=== PATIENT | female | born 1935 | race Caucasian/White ===

== ENCOUNTER 2021-06-22 13:36 | Inpatient (IN) ==
[2021-06-22 16:23] LABS: Basophils % 0.4 % (0.0-0.8); Eosinophils # 0.1 10*3/uL (0.0-0.87); Eosinophils % 1.1 % (0.00-10.9); Hematocrit 33.7 VOL% (35.7-47.0); Hemoglobin 10.8 GM/DL (12.0-16.0); Immature Granulocytes % 0.4 %; Immature Granulocytes Absolute 0.03 #; Lymphocytes # 0.7 10*3/uL (1.4-4.0); Lymphocytes % 9.2 % (21.3-54.2); Mean Corpuscular Volume 94.7 FL (87-102); Mean Platelet Volume 10.5 FL (9.6-12.0); Monocytes % 7.6 % (1.7-12.7); Neutrophils % 81.3 % (38.7-73.9); Platelet Count 278 T/CUMM (130-400); Red Blood Count 3.56 MC/CUMM (3.8-5.5); Red Cell Distribution Width 13.3 % (9.3-17.3); White Blood Count 7.2 T/CUMM (4-12)
[2021-06-22 16:34] LABS: PT Patient Result 11.4 SECS (10.5-12.0)
[2021-06-22 17:02] LABS: Albumin 2.5 G/DL (3.4-5.0); CKMB % 0.8 %; Calcium 8.5 MG/DL (8.5-10.1); High Sensitive Troponin I* 39.4 ng/L (0-54); Potassium 3.6 MMOL/L (3.5-5.1); Total Protein 6.7 G/DL (6.4-8.2)
[2021-06-22 18:49] LABS: Bilirubin,Urine Negative (Negative); Blood, Urine Small mg/dL (Negative); Glucose,Urine (UA) 50 mg/dL (Negative); Hyaline Casts,Urine 1 /LPF (0-3); Ketones,Urine 20 mg/dL (Negative); Mucus,Urine Occasional /LPF (Occasional); Nitrite,Urine Negative (Negative); Protein,Urine 100 MG/DL; RBC,Urine 2 /HPF (0-4); Squamous Epithelial Cell,Urine Occasional /HPF (0-10); Urine Appearance CLEAR (Clear); Urine Color Yellow (Yellow); Urine Specific Gravity 1.025 (1.001-1.035); Urine Urobilinogen < 2.0 EU/DL (<2.0)
[2021-06-22] MEDS ORDERED: CALCIUM CARBONATE CHEW 500 MG TABLET PO PRN (19:27)
[2021-06-22] MEDS ORDERED: ACETAMINOPHEN 325 MG TABLET PO PRN (19:27)
[2021-06-22] MEDS ORDERED: ONDANSETRON 4 MG/2 ML VIAL IV PRN (19:27)
[2021-06-23 04:15] LABS: Basophils % 0.4 % (0.0-0.8); Eosinophils # 0.1 10*3/uL (0.0-0.87); Hemoglobin 10.4 GM/DL (12.0-16.0); Immature Granulocytes % 0.4 %; Immature Granulocytes Absolute 0.03 #; Lymphocytes # 0.6 10*3/uL (1.4-4.0); Lymphocytes % 8.7 % (21.3-54.2); Mean Corpuscular HGB Conc 31.5 GM/DL (32-36); Mean Corpuscular Volume 95.7 FL (87-102); Mean Platelet Volume 10.7 FL (9.6-12.0); Monocytes % 8.2 % (1.7-12.7); Neutrophils % 81.3 % (38.7-73.9); Platelet Count 265 T/CUMM (130-400); Red Blood Count 3.45 MC/CUMM (3.8-5.5); Red Cell Distribution Width 13.5 % (9.3-17.3)
[2021-06-23 04:23] LABS: Calcium 8.3 MG/DL (8.5-10.1); Osmolality,Calculated 285.8 MOS/KG (273-304); Potassium 3.8 MMOL/L (3.5-5.1)
[2021-06-23] MEDS ORDERED: hydrALAZINE 20 MG/1 ML VIAL IV PRN (09:08)
[2021-06-23] MEDS ORDERED: NYSTATIN 500,000 UNIT/5 ML UDCUP SWISH/SWAL STA (09:54)
[2021-06-23] MEDS ORDERED: INFLUENZA VIRUS VACCINE 0.5 ML SYRINGE IM ONE (11:23)
[2021-06-23] MEDS: NYSTATIN POWDER 15 GM BOTTLE TOP SCH ×2 (12:41→22:50)
[2021-06-23] MEDS ORDERED: LORazepam 2 MG/1 ML VIAL IV PRN (15:03)
[2021-06-23] MEDS: SODIUM CHLORIDE 0.9% 1,000 ML IV SCH (15:36)
[2021-06-23] MEDS: METOPROLOL TARTRATE 25 MG TABLET PO SCH (22:47)
[2021-06-24] MEDS: SODIUM CHLORIDE 0.9% 1,000 ML IV SCH (00:29)
[2021-06-24 06:54] LABS: Basophils % 0.6 % (0.0-0.8); Eosinophils # 0.2 10*3/uL (0.0-0.87); Eosinophils % 2.2 % (0.00-10.9); Hematocrit 33.5 VOL% (35.7-47.0); Hemoglobin 10.1 GM/DL (12.0-16.0); Immature Granulocytes % 0.6 %; Immature Granulocytes Absolute 0.04 #; Lymphocytes # 0.5 10*3/uL (1.4-4.0); Lymphocytes % 7.7 % (21.3-54.2); Mean Corpuscular HGB Conc 30.1 GM/DL (32-36); Mean Corpuscular Volume 98.8 FL (87-102); Mean Platelet Volume 10.7 FL (9.6-12.0); Monocytes % 8.9 % (1.7-12.7); Platelet Count 264 T/CUMM (130-400); Red Blood Count 3.39 MC/CUMM (3.8-5.5); Red Cell Distribution Width 13.5 % (9.3-17.3); White Blood Count 6.8 T/CUMM (4-12)
[2021-06-24 07:28] LABS: Potassium 3.4 MMOL/L (3.5-5.1)
[2021-06-24] MEDS ORDERED: POTASSIUM CHLORIDE 20 MEQ TABLET PO ONE (09:05)
[2021-06-24] MEDS: NYSTATIN POWDER 15 GM BOTTLE TOP SCH ×2 (09:12→21:26)
[2021-06-24] MEDS: PANTOPRAZOLE 40 MG TABLET PO SCH (09:15)
[2021-06-24] MEDS: METOPROLOL TARTRATE 25 MG TABLET PO SCH ×2 (09:15→22:53)
[2021-06-24] MEDS ORDERED: MAGNESIUM SULF RIDER 2 GM/50 ML PREMIX IV ONE (09:30)
[2021-06-24 09:42] LABS: % Iron Saturation 12.6 % (18-50)
[2021-06-24] MEDS: DEXTROSE 5% 1,000 ML IV SCH (09:52)
[2021-06-24 17:26] LABS: Folate 17.04 NG/ML (5.38-24.0)
[2021-06-25] MEDS: DEXTROSE 5% 1,000 ML IV SCH ×2 (00:24→16:35)
[2021-06-25 03:47] LABS: Basophils % 0.6 % (0.0-0.8); Eosinophils # 0.4 10*3/uL (0.0-0.87); Eosinophils % 6.4 % (0.00-10.9); Hematocrit 34.7 VOL% (35.7-47.0); Hemoglobin 10.6 GM/DL (12.0-16.0); Immature Granulocytes % 0.3 %; Immature Granulocytes Absolute 0.02 #; Lymphocytes # 0.8 10*3/uL (1.4-4.0); Lymphocytes % 12.3 % (21.3-54.2); Mean Corpuscular HGB Conc 30.5 GM/DL (32-36); Mean Corpuscular Volume 96.7 FL (87-102); Mean Platelet Volume 10.6 FL (9.6-12.0); Monocytes % 8.4 % (1.7-12.7); Platelet Count 272 T/CUMM (130-400); Red Blood Count 3.59 MC/CUMM (3.8-5.5); Red Cell Distribution Width 13.5 % (9.3-17.3); White Blood Count 6.7 T/CUMM (4-12)
[2021-06-25 04:03] LABS: Calcium 7.9 MG/DL (8.5-10.1); Osmolality,Calculated 289.6 MOS/KG (273-304)
[2021-06-25] MEDS: ASPIRIN EC 81 MG TABLET PO SCH (09:09)
[2021-06-25] MEDS: NYSTATIN POWDER 15 GM BOTTLE TOP SCH ×2 (09:10→21:09)
[2021-06-25] MEDS: PANTOPRAZOLE 40 MG TABLET PO SCH (09:10)
[2021-06-25] MEDS: METOPROLOL TARTRATE 25 MG TABLET PO SCH ×2 (09:10→21:08)
[2021-06-25] MEDS: POTASSIUM CHLORIDE 20 MEQ TABLET PO SCH ×2 (09:10→13:07)
[2021-06-25] MEDS: FERROUS SULFATE 325 MG TABLET PO SCH (09:10)
[2021-06-25] MEDS ORDERED: METOPROLOL TARTRATE 25 MG TABLET PO ONE (12:00)
[2021-06-25] MEDS: FLUCONAZOLE 150 MG TABLET PO SCH (16:37)
[2021-06-25] MEDS: QUEtiapine 25 MG TABLET PO SCH (18:17)
[2021-06-26] MEDS: DEXTROSE 5% 1,000 ML IV SCH (03:14)
[2021-06-26 05:11] LABS: Basophils % 0.3 % (0.0-0.8); Eosinophils # 0.6 10*3/uL (0.0-0.87); Eosinophils % 9.4 % (0.00-10.9); Hematocrit 32.2 VOL% (35.7-47.0); Hemoglobin 10.1 GM/DL (12.0-16.0); Immature Granulocytes % 0.5 %; Immature Granulocytes Absolute 0.03 #; Lymphocytes % 15.9 % (21.3-54.2); Mean Corpuscular HGB Conc 31.4 GM/DL (32-36); Monocytes % 10.5 % (1.7-12.7); Neutrophils % 63.4 % (38.7-73.9); Platelet Count 246 T/CUMM (130-400); Red Blood Count 3.39 MC/CUMM (3.8-5.5); Red Cell Distribution Width 13.6 % (9.3-17.3)
[2021-06-26 05:35] LABS: Calcium 7.9 MG/DL (8.5-10.1); Osmolality,Calculated 280.4 MOS/KG (273-304); Potassium 3.1 MMOL/L (3.5-5.1)
[2021-06-26] MEDS: POTASSIUM CHLORIDE 20 MEQ TABLET PO SCH ×2 (08:00→11:07)
[2021-06-26] MEDS: ASPIRIN EC 81 MG TABLET PO SCH ×2 (08:43→11:08)
[2021-06-26] MEDS: FERROUS SULFATE 325 MG TABLET PO SCH (08:45)
[2021-06-26] MEDS ORDERED: FUROSEMIDE 20 MG/2 ML VIAL IV ONE (08:46)
[2021-06-26] MEDS: METOPROLOL TARTRATE 25 MG TABLET PO SCH ×2 (08:48→20:23)
[2021-06-26] MEDS: PANTOPRAZOLE 40 MG TABLET PO SCH (08:50)
[2021-06-26] MEDS: NYSTATIN POWDER 15 GM BOTTLE TOP SCH ×2 (11:08→20:23)
[2021-06-26] MEDS: AMOXICILLIN/CLAV 875 MG TABLET PO SCH (15:12)
[2021-06-26] MEDS ORDERED: TUBERCULIN SKIN TEST 0.1 ML SYRINGE INTRADERM ONE (16:57)
[2021-06-26] MEDS: QUEtiapine 25 MG TABLET PO SCH (18:08)
[2021-06-27] MEDS: AMOXICILLIN/CLAV 875 MG TABLET PO SCH ×2 (01:55→13:53)
[2021-06-27 05:33] LABS: Basophils % 0.3 % (0.0-0.8); Eosinophils # 0.7 10*3/uL (0.0-0.87); Eosinophils % 10.9 % (0.00-10.9); Hemoglobin 10.3 GM/DL (12.0-16.0); Immature Granulocytes % 0.6 %; Immature Granulocytes Absolute 0.04 #; Lymphocytes % 15.4 % (21.3-54.2); Mean Corpuscular HGB Conc 30.3 GM/DL (32-36); Mean Platelet Volume 11.1 FL (9.6-12.0); Neutrophils % 63.8 % (38.7-73.9); Platelet Count 255 T/CUMM (130-400); Red Blood Count 3.54 MC/CUMM (3.8-5.5); Red Cell Distribution Width 13.7 % (9.3-17.3); White Blood Count 6.3 T/CUMM (4-12)
[2021-06-27 05:42] LABS: Potassium 3.5 MMOL/L (3.5-5.1)
[2021-06-27] MEDS: METOPROLOL TARTRATE 25 MG TABLET PO SCH ×2 (08:26→20:25)
[2021-06-27] MEDS: ASPIRIN EC 81 MG TABLET PO SCH (08:26)
[2021-06-27] MEDS: PANTOPRAZOLE 40 MG TABLET PO SCH (08:26)
[2021-06-27] MEDS: NYSTATIN POWDER 15 GM BOTTLE TOP SCH ×2 (08:27→20:25)
[2021-06-27] MEDS: FERROUS SULFATE 325 MG TABLET PO SCH (08:27)
[2021-06-27] MEDS: QUEtiapine 25 MG TABLET PO SCH (17:47)
[2021-06-28] MEDS: AMOXICILLIN/CLAV 875 MG TABLET PO SCH ×2 (01:14→14:02)
[2021-06-28 05:31] LABS: Basophils % 0.7 % (0.0-0.8); Eosinophils # 0.7 10*3/uL (0.0-0.87); Eosinophils % 11.4 % (0.00-10.9); Hemoglobin 10.2 GM/DL (12.0-16.0); Immature Granulocytes % 0.7 %; Immature Granulocytes Absolute 0.04 #; Lymphocytes # 0.8 10*3/uL (1.4-4.0); Lymphocytes % 13.3 % (21.3-54.2); Mean Corpuscular HGB Conc 30.9 GM/DL (32-36); Mean Corpuscular Volume 95.7 FL (87-102); Mean Platelet Volume 10.7 FL (9.6-12.0); Monocytes % 10.4 % (1.7-12.7); Neutrophils % 63.5 % (38.7-73.9); Platelet Count 251 T/CUMM (130-400); Red Blood Count 3.45 MC/CUMM (3.8-5.5); Red Cell Distribution Width 13.9 % (9.3-17.3)
[2021-06-28 05:49] LABS: Calcium 7.9 MG/DL (8.5-10.1); Osmolality,Calculated 288.7 MOS/KG (273-304); Potassium 3.8 MMOL/L (3.5-5.1)
[2021-06-28 06:36] LABS: Eosinophils 11 % (0-10); Lymphocytes 8 % (20-55); Platelet Estimate Adequate; Segmented Neutrophils 75 % (50-85); Total Cells Counted 100
[2021-06-28] MEDS: ASPIRIN EC 81 MG TABLET PO SCH (08:15)
[2021-06-28] MEDS: FERROUS SULFATE 325 MG TABLET PO SCH (08:15)
[2021-06-28] MEDS: PANTOPRAZOLE 40 MG TABLET PO SCH (08:15)
[2021-06-28] MEDS: METOPROLOL TARTRATE 25 MG TABLET PO SCH ×2 (08:15→21:57)
[2021-06-28] MEDS: NYSTATIN POWDER 15 GM BOTTLE TOP SCH ×2 (08:16→21:57)
[2021-06-28] MEDS ORDERED: CYANOCOBALAMIN 500 MCG TABLET PO SCH (09:00)
[2021-06-28] MEDS: CYANOCOBALAMIN 1000 MCG/1 ML VIAL IM SCH (10:29)
[2021-06-28] MEDS: CHOLECALCIFEROL 1,000 UNIT TABLET PO SCH (10:29)
[2021-06-28] MEDS: FLUCONAZOLE 150 MG TABLET PO SCH (14:03)
[2021-06-28] MEDS: QUEtiapine 25 MG TABLET PO SCH (18:26)
[2021-06-29] MEDS: AMOXICILLIN/CLAV 875 MG TABLET PO SCH ×2 (00:51→14:07)
[2021-06-29] MEDS: METOPROLOL TARTRATE 25 MG TABLET PO SCH ×2 (08:40→20:55)
[2021-06-29] MEDS: PANTOPRAZOLE 40 MG TABLET PO SCH (08:40)
[2021-06-29] MEDS: CHOLECALCIFEROL 1,000 UNIT TABLET PO SCH (08:40)
[2021-06-29] MEDS: FERROUS SULFATE 325 MG TABLET PO SCH (08:40)
[2021-06-29] MEDS: ASPIRIN EC 81 MG TABLET PO SCH (08:40)
[2021-06-29] MEDS: NYSTATIN POWDER 15 GM BOTTLE TOP SCH ×2 (08:41→20:55)
[2021-06-29] MEDS ORDERED: MORPHINE 2 MG/1 ML SYRINGE IV PRN (15:48)
[2021-06-29] MEDS ORDERED: POLYETHYLENE GLYCOL POWDER 255 GM BOTTLE PO ONE (15:48)
[2021-06-29] MEDS ORDERED: LORazepam 2 MG/1 ML VIAL IV PRN (15:48)
[2021-06-29] MEDS ORDERED: POLYETHYLENE GLYCOL POWDER 17 GM PACK PO ONE (15:54)
[2021-06-29] MEDS: QUEtiapine 25 MG TABLET PO SCH (17:20)
[2021-06-29] MEDS: DOCUSATE SODIUM 100 MG CAPSULE PO SCH (20:55)
[2021-06-30] MEDS: AMOXICILLIN/CLAV 875 MG TABLET PO SCH ×2 (00:05→12:00)
[2021-06-30] MEDS: DOCUSATE SODIUM 100 MG CAPSULE PO SCH ×2 (08:45→22:06)
[2021-06-30] MEDS: ASPIRIN EC 81 MG TABLET PO SCH (08:45)
[2021-06-30] MEDS: PANTOPRAZOLE 40 MG TABLET PO SCH (08:45)
[2021-06-30] MEDS: FERROUS SULFATE 325 MG TABLET PO SCH (08:45)
[2021-06-30] MEDS: METOPROLOL TARTRATE 25 MG TABLET PO SCH ×2 (08:45→22:06)
[2021-06-30] MEDS: CHOLECALCIFEROL 1,000 UNIT TABLET PO SCH (08:45)
[2021-06-30] MEDS: NYSTATIN POWDER 15 GM BOTTLE TOP SCH ×2 (08:45→22:07)
[2021-06-30] MEDS ORDERED: POLYETHYLENE GLYCOL POWDER 17 GM PACK PO SCH (09:00)
[2021-06-30] MEDS: QUEtiapine 25 MG TABLET PO SCH (17:15)
[2021-06-30] MEDS: MORPHINE ER 15 MG TABLET PO SCH (22:06)
[2021-07-01] MEDS: AMOXICILLIN/CLAV 875 MG TABLET PO SCH ×2 (00:10→13:04)
[2021-07-01] MEDS: ASPIRIN EC 81 MG TABLET PO SCH (09:57)
[2021-07-01] MEDS: CHOLECALCIFEROL 1,000 UNIT TABLET PO SCH (09:57)
[2021-07-01] MEDS: FERROUS SULFATE 325 MG TABLET PO SCH (09:57)
[2021-07-01] MEDS: DOCUSATE SODIUM 100 MG CAPSULE PO SCH ×2 (09:58→21:03)
[2021-07-01] MEDS: PANTOPRAZOLE 40 MG TABLET PO SCH (09:58)
[2021-07-01] MEDS: METOPROLOL TARTRATE 25 MG TABLET PO SCH ×2 (09:58→21:03)
[2021-07-01] MEDS: NYSTATIN POWDER 15 GM BOTTLE TOP SCH ×2 (09:59→21:04)
[2021-07-01] MEDS: QUEtiapine 25 MG TABLET PO SCH (17:46)
[2021-07-01] MEDS: MORPHINE ER 15 MG TABLET PO SCH (21:03)
[2021-07-02] MEDS: AMOXICILLIN/CLAV 875 MG TABLET PO SCH ×2 (00:50→13:20)
[2021-07-02] MEDS: METOPROLOL TARTRATE 25 MG TABLET PO SCH ×2 (08:04→21:10)
[2021-07-02] MEDS: ASPIRIN EC 81 MG TABLET PO SCH (08:04)
[2021-07-02] MEDS: FERROUS SULFATE 325 MG TABLET PO SCH (08:04)
[2021-07-02] MEDS: DOCUSATE SODIUM 100 MG CAPSULE PO SCH ×2 (08:04→21:10)
[2021-07-02] MEDS: CHOLECALCIFEROL 1,000 UNIT TABLET PO SCH (08:04)
[2021-07-02] MEDS: PANTOPRAZOLE 40 MG TABLET PO SCH (08:05)
[2021-07-02] MEDS: NYSTATIN POWDER 15 GM BOTTLE TOP SCH ×2 (08:05→21:10)
[2021-07-02] MEDS: QUEtiapine 25 MG TABLET PO SCH (17:17)
[2021-07-02] MEDS: MORPHINE ER 15 MG TABLET PO SCH (21:10)
[2021-07-03] MEDS: METOPROLOL TARTRATE 25 MG TABLET PO SCH ×2 (09:01→21:51)
[2021-07-03] MEDS: ASPIRIN EC 81 MG TABLET PO SCH (09:01)
[2021-07-03] MEDS: FERROUS SULFATE 325 MG TABLET PO SCH (09:01)
[2021-07-03] MEDS: CHOLECALCIFEROL 1,000 UNIT TABLET PO SCH (09:01)
[2021-07-03] MEDS: AMOXICILLIN/CLAV 875 MG TABLET PO SCH (09:01)
[2021-07-03] MEDS: NYSTATIN POWDER 15 GM BOTTLE TOP SCH ×2 (09:02→21:52)
[2021-07-03] MEDS: PANTOPRAZOLE 40 MG TABLET PO SCH (09:02)
[2021-07-03] MEDS: DOCUSATE SODIUM 100 MG CAPSULE PO SCH ×2 (09:02→21:51)
[2021-07-03] MEDS: MORPHINE ER 15 MG TABLET PO SCH (21:51)
[2021-07-03] MEDS: QUEtiapine 25 MG TABLET PO SCH (21:51)
[2021-07-04] MEDS: CHOLECALCIFEROL 1,000 UNIT TABLET PO SCH (09:33)
[2021-07-04] MEDS: PANTOPRAZOLE 40 MG TABLET PO SCH (09:33)
[2021-07-04] MEDS: METOPROLOL TARTRATE 25 MG TABLET PO SCH ×2 (09:33→21:55)
[2021-07-04] MEDS: ASPIRIN EC 81 MG TABLET PO SCH (09:33)
[2021-07-04] MEDS: FERROUS SULFATE 325 MG TABLET PO SCH (09:34)
[2021-07-04] MEDS: DOCUSATE SODIUM 100 MG CAPSULE PO SCH ×2 (09:34→21:56)
[2021-07-04] MEDS: NYSTATIN POWDER 15 GM BOTTLE TOP SCH ×2 (14:27→21:56)
[2021-07-04] MEDS: QUEtiapine 25 MG TABLET PO SCH (17:58)
[2021-07-04] MEDS: MORPHINE ER 15 MG TABLET PO SCH (21:55)
[2021-07-05 07:17] VITALS: BP 152/71
[2021-07-05] MEDS: METOPROLOL TARTRATE 25 MG TABLET PO SCH (08:15)
[2021-07-05] MEDS: DOCUSATE SODIUM 100 MG CAPSULE PO SCH (08:16)
[2021-07-05] MEDS: ASPIRIN EC 81 MG TABLET PO SCH (08:16)
[2021-07-05] MEDS: CHOLECALCIFEROL 1,000 UNIT TABLET PO SCH (08:16)
[2021-07-05] MEDS: CYANOCOBALAMIN 1000 MCG/1 ML VIAL IM SCH (08:16)
[2021-07-05] MEDS: FERROUS SULFATE 325 MG TABLET PO SCH (08:16)
[2021-07-05] MEDS: PANTOPRAZOLE 40 MG TABLET PO SCH (08:17)
[2021-07-05] MEDS: NYSTATIN POWDER 15 GM BOTTLE TOP SCH (08:21)
== END 2021-07-05 09:30 | disposition hospice, inpatient (51) | DRG 947 ==
LOC: N.ED 13:36 → SUATTDRO 19:27 → N.EDINP 19:27 → N.3E 06-23 10:40
PROVIDERS: ADMIT Internal Medicine; ATTEND Emergency Medicine